=== PATIENT | male | born 1980 ===

== ENCOUNTER 2018-08-25 02:55 | Emergency (ER) | payer SELFPAY ==
--- NOTE | 2018-08-25 03:28 | ED PDOC ---
HPI: Psych/Substance Abuse Time Seen by Provider: 08/25/18 03:14 Chief Complaint (Nursing): Alcohol Ingestion Chief Complaint (Provider): Alcohol Ingestion ED Caveat: Intoxicated History Per: EMS History/Exam Limitations: intoxication Onset/Duration Of Symptoms: Sudden Onset Current Symptoms Are (Timing): Still Present Modifying Factor(s): Alcohol Additional Complaint(s): 38 year old male arrives to ED via EMS for an evaluation of public alcohol intoxication prior to arrival. Unable to obtain further medical history secondary to clinical condition. Patient additionally reports experiencing a fall, in which, he sustained a forehead/facial abrasion. PCP: none provided Past Medical History Reviewed: Nursing Documentation, Vital Signs, Unable To Obtain Vital Signs: Last Vital Signs Temp 98.0 F 08/25/18 03:11 Pulse 89 08/25/18 03:11 Resp 16 08/25/18 03:11 BP 151/61 H 08/25/18 03:11 Pulse Ox 96 08/25/18 03:11 - Family History Family History: States: Unknown Family Hx - Allergies Allergies/Adverse Reactions: Allergies Allergy/AdvReac Type Severity Reaction Status Date / Time No Known Allergies Allergy Verified 08/25/18 03:15 Review of Systems Review Of Systems: ROS cannot be obtained secondary to pt's inabilty to answer questions. Physical Exam - Reviewed Nursing Documentation Reviewed: Yes Vital Signs Reviewed: Yes - Physical Exam Appears: Positive for: Non-toxic, No Acute Distress Head Exam: Negative for: ATRAUMATIC Skin: Positive for: Normal Color Eye Exam: Positive for: Normal appearance ENT: Positive for: Normal ENT Inspection Neck: Positive for: Normal, Painless ROM Cardiovascular/Chest: Positive for: Regular Rate, Rhythm Respiratory: Positive for: Normal Breath Sounds. Negative for: Respiratory Distress Gastrointestinal/Abdominal: Positive for: Normal Exam, Soft Extremity: Positive for: Normal ROM (upper/lower). Negative for: Deformity (upper/lower) Neurologic/Psych: Positive for: Gait (unsteady), Other (slurred speech; (+) AOB; large abrasions to face and forehead) - ECG O2 Sat by Pulse Oximetry: 96 (RA) Pulse Ox Interpretation: Normal Medical Decision Making Medical Decision Making: Initial Impression: 38 year old male with alcohol intoxication Initial Plan: * Accucheck * Alcohol serum * Clinical sobriety * CT head without contrast Time: 0700 --Patient is signed out to Dr. Walsh, pending CT results and re-evaluation. Scribe Attestation: Documented by Claudia Eagle, acting as a scribe for Jose M Cartwright MD. Provider Scribe Attestation: All medical record entries made by the Scribe were at my direction and personally dictated by me. I have reviewed the chart and agree that the record accurately reflects my personal performance of the history, physical exam, medical decision making, and the department course for this patient. I have also personally directed, reviewed, and agree with the discharge instructions and disposition. Disposition - Clinical Impression Clinical Impression: Alcohol intoxication, Head injury - Patient ED Disposition Is Patient to be Admitted: Transfer of Care - Disposition Disposition Time: 07:00 Condition: FAIR Instructions: Minor Head Injury (DC), Alcohol Abuse and Alcoholism (DC) Patient Signed Over To: Karla Walsh
--- NOTE | 2018-08-25 08:24 | ED PDOC ---
- ECG O2 Sat by Pulse Oximetry: 96 (RA) - Progress Re-evaluation Time: 08:24 Condition: Re-examined, Improved Medical Decision Making Medical Decision Makin:00 Patient signed out to this provider from Dr. Cartwright. Pending CT results and reevaluation. 07:07 CT head Normal size of the ventricles and extra-axial spaces for the patient's age. Normal white matter tracts of the supratentorial brain. Normal basal ganglia and thalami. Normal brainstem. Normal cerebellum. There is no demonstrated extra-axial, intraparenchymal, or intraventricular hemorrhage. There are no findings of an acute ischemic infarction. Normal calvarium. There is no demonstrated fracture. Normal soft tissue structures. Normal visualized paranasal sinuses. IMPRESSION: Normal unenhanced CT scan of the brain. -- Scribe Attestation: Documented by Keith Kohler acting as a scribe for Karla Walsh MD. Provider Scribe Attestation: All medical record entries made by the Scribe were at my direction and personally dictated by me. I have reviewed the chart and agree that the record accurately reflects my personal performance of the history, physical exam, medical decision making, and the department course for this patient. I have also personally directed, reviewed, and agree with the discharge instructions and disposition. Disposition - Clinical Impression Clinical Impression: Alcohol intoxication, Head injury - POA Present On Arrival: None - Disposition Disposition: Routine/Home Disposition Time: 08:25 Condition: GOOD Instructions: Minor Head Injury (DC), Alcohol Abuse and Alcoholism (DC)
[2018-08-25 08:42] VITALS: PULSE 78; RESP 19
[2018-08-25 08:50] VITALS: BP 126/78; TEMP 97.5
--- NOTE | 2018-08-25 10:36 | CT ---
Date of service: 08/25/2018 PROCEDURE: CT HEAD WITHOUT CONTRAST. HISTORY: headache COMPARISON: None available. TECHNIQUE: Axial computed tomography images were obtained through the head/brain without intravenous contrast. Radiation dose: Total exam DLP = 1532.94 mGy-cm. This CT exam was performed using one or more of the following dose reduction techniques: Automated exposure control, adjustment of the mA and/or kV according to patient size, and/or use of iterative reconstruction technique. FINDINGS: HEMORRHAGE: No intracranial hemorrhage. BRAIN: Normal michelle-white matter differentiation and density are appreciated throughout the cerebrum and cerebellum with the brainstem appearing unremarkable as well. There is no mass effect. There is no suspicious extra-axial fluid collection and the midline brain anatomy appears diffusely unremarkable. VENTRICLES: Unremarkable. No hydrocephalus. CALVARIUM: Unremarkable. PARANASAL SINUSES: Unremarkable as visualized. No significant inflammatory changes. MASTOID AIR CELLS: Unremarkable as visualized. No inflammatory changes. OTHER FINDINGS: None. IMPRESSION: Normal noncontrast CT of the Head. Concordant preliminary report from [facility], 08/25/2018.
[2018-08-25 20:02] VITALS: O2SAT 96
== END 2018-08-25 08:52 | disposition home or self-care (01) ==
LOC: H.ER 02:55
DX: F10.129 Alcohol abuse with intoxication, unspecified (principal); S09.90XA Unspecified injury of head, initial encounter; Y90.8 Blood alcohol level of 240 mg/100 ml or more; W19.XXXA Unspecified fall, initial encounter
CPT/HCPCS: 70450; 82948; 99283; G0480